=== PATIENT | female | born 1995 | race Hispanic/Latino ===

== ENCOUNTER 2021-03-20 00:20 | Emergency (ER) | payer OTHER ==
[~2021-03-20] VITALS: Ht 170.2 cm; Wt 109.1 kg
[2021-03-20] MEDS ORDERED: ONDANSETRON 4MG/2ML VIAL IV ONE (02:10)
[2021-03-20] MEDS ORDERED: NS 1,000 ML IV ONE (02:10)
[2021-03-20 03:11] LABS: BASO % 0.3 % (0.0-1.0); HEMATOCRIT 36.9 % (36.0-47.0); HEMOGLOBIN 11.4 g/dl (12.0-15.5); LYMPH # 1.2 10^3/uL (1.5-5.0); LYMPH % 11.1 % (24.0-44.0); MEAN CORPUSCULAR HGB CONC 30.9 g/dl (32.0-36.5); MEAN CORPUSCULAR VOLUME 87.2 fl (80.0-96.0); MONO # 0.3 10^3/uL (0.0-0.8); MONO % 2.7 % (2.0-8.0); NEUTROPHILS # 9.4 10^3/uL (1.5-8.5); NEUTROPHILS % 85.1 % (36.0-66.0); PLATELET COUNT, AUTOMATED 227 10^3/uL (150-450); RED BLOOD COUNT 4.23 10^6/uL (4.00-5.40); WHITE BLOOD COUNT 11.1 10^3/uL (4.0-10.0)
[2021-03-20] MEDS ORDERED: ISOVUE-370 76% 100ML VIAL As Ordered ONE (03:31)
[2021-03-20 03:49] LABS: ALBUMIN 3.6 GM/DL (3.2-5.2); ALT/SGPT 21 U/L (12-78); BILIRUBIN,TOTAL 0.2 MG/DL (0.2-1.0); BLOOD UREA NITROGEN 11 MG/DL (7-18); CALCIUM LEVEL 9.2 MG/DL (8.5-10.1); CARBON DIOXIDE LEVEL 24 MEQ/L (21-32); CHLORIDE LEVEL 104 MEQ/L (98-107); GLOMERULAR FILTRATION RATE > 60.0 (>60); GLUCOSE, FASTING 154 MG/DL (70-100); LIPASE 68 U/L (73-393); POTASSIUM SERUM 4.1 MEQ/L (3.5-5.1); SODIUM LEVEL 137 MEQ/L (136-145); TOTAL PROTEIN 8.4 GM/DL (6.4-8.2)
[2021-03-20 04:50] LABS: GC DNA AMPLIFICATION NEGATIVE (NEGATIVE)
[2021-03-20 05:30] VITALS: BP 134/94
[2021-03-20] MEDS ORDERED: KETO10TAB PO (05:31)
== END 2021-03-20 05:35 | disposition home or self-care (01) ==
LOC: M ED 00:20
DX: R10.2 Pelvic and perineal pain (principal); R11.2 Nausea with vomiting, unspecified
CPT/HCPCS: 74177; 80053; 81001; 83690; 84702; 85025; 87210; 87808; 87810; 87850; 96361; 96374; 99284; J2405; Q9967